=== PATIENT | male | born 1955 | race Caucasian/White ===

== ENCOUNTER 2019-12-09 07:07 | Day surgery (SDC) | payer OTHER ==
[2019-12-01 17:14] VITALS: BMI 25.1
[2019-12-09 07:30] VITALS: TEMP 98.4
[2019-12-09] MEDS ORDERED: PROPOFOL 20 ML ONE ×3 (08:05)
[2019-12-09] MEDS ORDERED: LIDOCAINE HCL/PF 2% SDV 5ML VIAL ONE (08:05)
[2019-12-09 09:22] VITALS: BP 116/58; PULSE 73
== END 2019-12-09 09:40 | disposition home or self-care (01) ==
LOC: FASU 07:07
PROVIDERS: ATTEND Internal Medicine Gastroenterology
PROC: 0DJD8ZZ Inspection of Lower Intestinal Tract, Via Natural or Artificial Opening Endoscopic (ICD-10-PCS; principal; 2019-12-09 08:32)
DX: Z12.11 Encounter for screening for malignant neoplasm of colon (principal); Z80.0 Family history of malignant neoplasm of digestive organs; K57.30 Diverticulosis of large intestine without perforation or abscess without bleeding; K64.8 Other hemorrhoids